=== PATIENT | female | born 1995 | race Caucasian/White ===

== ENCOUNTER 2017-09-14 19:06 | Emergency (ER) | payer OTHER ==
[2017-09-14 20:02] VITALS: BP 140/87
[2017-09-14] MEDS ORDERED: Polymyx/Trimethoprim OPTH* 10 ML BTL RIGHT EYE ONE (20:12)
--- NOTE | 2017-09-14 20:12 | UC ---
Eye Complaint HPI - HPI Summary HPI Summary: crusting itching and burning began in left eye this morning - History of Current Complaint Chief Complaint: UCEye Stated Complaint: EYE COMP. Time Seen by Provider: 09/14/17 20:07 Hx Obtained From: Patient Hx Last Menstrual Period: unknown ?: No Onset/Duration: Sudden Onset Timing: Constant Pain Intensity: 0 Location of Injury: Conjunctiva Aggravating Factor(s): Nothing Alleviating Factor(s): Nothing Associated Signs And Symptoms: Positive: Drainage (Purulent) - Allergies/Home Medications Allergies/Adverse Reactions: Allergies Allergy/AdvReac Type Severity Reaction Status Date / Time cefaclor [From [facility]] Allergy Hives Verified 09/14/17 19:56 Home Medications: Home Medications Albuterol 2.5MG/3ML (0.083%)* [Ventolin 2.5 MG/3 ML NEB.MERT*] 2.5 mg INH Q6H PRN 09/14/17 [History Confirmed 09/14/17] Budesonide/Formote 160/4.5(NF) [Symbicort 160/4.5 (NF)] 2 puff INH BID 09/14/17 [History Confirmed 09/14/17] PMH/Surg Hx/FS Hx/Imm Hx Previously Healthy: No Respiratory History: Asthma - Surgical History Surgical History: None - Family History Known Family History: Positive: None - Social History Occupation: Unemployed Lives: With Family Alcohol Use: None Substance Use Type: None Smoking Status (MU): Never Smoked Tobacco Review of Systems Constitutional: Negative Skin: Negative Eyes: Negative, Drainage - os, Eye Redness - os ENT: Negative Respiratory: Negative Cardiovascular: Negative Gastrointestinal: Negative Genitourinary: Negative Motor: Negative Neurovascular: Negative Musculoskeletal: Negative Neurological: Negative Psychological: Negative Is Patient Immunocompromised?: No All Other Systems Reviewed And Are Negative: Yes Physical Exam Triage Information Reviewed: Yes Appearance: Well-Appearing, No Pain Distress, Well-Nourished Vital Signs: Initial Vital Signs Temp 98 F 09/14/17 19:57 Pulse 90 09/14/17 19:57 Resp 18 09/14/17 19:57 BP 140/87 09/14/17 19:57 Pulse Ox 97 09/14/17 19:57 Vital Signs Reviewed: Yes Eye Exam: Normal Eyes: Positive: Conjunctiva Inflamed - os, Discharge - os ENT Exam: Normal ENT: Positive: Normal ENT inspection, Hearing grossly normal. Negative: Trismus , Muffled voice, Hoarse voice Dental Exam: Normal Neck exam: Normal Neck: Positive: Supple, Nontender Respiratory Exam: Normal Respiratory: Positive: Chest non-tender, No respiratory distress, No accessory muscle use Cardiovascular Exam: Normal Cardiovascular: Positive: RRR, Pulses Normal, Brisk Capillary Refill Musculoskeletal Exam: Normal Musculoskeletal: Positive: Strength Intact, ROM Intact, No Edema Neurological Exam: Normal Neurological: Positive: Alert, Muscle Tone Normal Psychological Exam: Normal Skin Exam: Normal Eye Complaint Course/Dx - Course Course Of Treatment: polytrim eye drops, follow blood pressure with pcp good hand washing - Differential Dx/Diagnosis Provider Diagnoses: OS Conjusctivitis, elevated blood pressure without dx of hypertension Discharge - Sign-Out/Discharge Documenting (check all that apply): Discharge/Admit/Transfer - Discharge Plan Condition: Stable Disposition: HOME Patient Education Materials: How to Use Eye Drops (ED), Conjunctivitis (ED) Forms: *Work Release Referrals: Palmira Pedro MD [Primary Care Provider] - If Needed - Billing Disposition and Condition Condition: STABLE Disposition: HOME
== END 2017-09-14 20:33 | disposition home or self-care (01) ==
LOC: UCCORT 19:06
DX: H10.32 Unspecified acute conjunctivitis, left eye (principal); R03.0 Elevated blood-pressure reading, without diagnosis of hypertension; J45.909 Unspecified asthma, uncomplicated; Z88.1 Allergy status to other antibiotic agents
CPT/HCPCS: 99202; G0463

== ENCOUNTER 2018-07-28 20:13 | Emergency (ER) | payer OTHER ==
[2018-07-28 20:32] VITALS: BP 132/75
--- NOTE | 2018-07-28 20:46 | UC ---
Skin Complaint HPI - HPI Summary HPI Summary: Patient has had a rash on the end of her nose for approximately 2 days. She has a history of cold sores. She was sent here for a note to return to work stating she was no longer contagious. - History of Current Complaint Chief Complaint: UCSkin Time Seen by Provider: 07/28/18 20:16 Stated Complaint: SKIN COMPLAINT Hx Obtained From: Patient Hx Last Menstrual Period: unknown ?: No Onset/Duration: Gradual Onset Onset Severity: Moderate Current Severity: Mild - The rash on the end of her nose is crusted today. Pain Intensity: 0 Location: Nose Character: Pruritus - Rash started off as being itchy Aggravating Factor(s): Nothing Alleviating Factor(s): Other - Patient states she "scrubbed the area" with alcohol yesterday and today. Associated Signs & Symptoms: Positive: Negative - Allergy/Home Medications Allergies/Adverse Reactions: Allergies Allergy/AdvReac Type Severity Reaction Status Date / Time cefaclor [From [facility]] Allergy Hives Verified 07/28/18 20:32 PMH/Surg Hx/FS Hx/Imm Hx Previously Healthy: Yes - straight sores. - Surgical History Surgical History: None - Family History Known Family History: Positive: None - Social History Alcohol Use: None Substance Use Type: None Smoking Status (MU): Never Smoked Tobacco Review of Systems All Other Systems Reviewed And Are Negative: Yes Constitutional: Positive: Negative Skin: Positive: Rash - Valeri nose which is now dry and not draining. Eyes: Positive: Negative ENT: Positive: Negative Respiratory: Positive: Negative Cardiovascular: Positive: Negative Gastrointestinal: Positive: Negative Genitourinary: Positive: Negative Motor: Positive: Negative Neurovascular: Positive: Negative Musculoskeletal: Positive: Negative Neurological: Positive: Negative Psychological: Positive: Negative Is Patient Immunocompromised?: No Physical Exam Triage Information Reviewed: Yes Appearance: Well-Appearing, No Pain Distress, Well-Nourished Vital Signs: Initial Vital Signs Temp 98.4 F 07/28/18 20:24 Pulse 87 07/28/18 20:24 Resp 16 07/28/18 20:24 BP 132/75 07/28/18 20:24 Pulse Ox 98 07/28/18 20:24 Vital Signs Reviewed: Yes Skin: Positive: Rashes, Other - Patient has a herpetic looking dried crusty rash at the end of her nose. No lesions inside the nose. No cellulitis of the nose. Course/Dx - Course Course Of Treatment: Patient comfortable here, she is given a note for work to say that she may return without restrictions. A good RX coupon was given to the patient to use at the pharmacy. We discussed the nature of cold sores and impetigo although I don't feel this is impetigo at this time. - Differential Diagnoses - Skin Complaint Differential Diagnoses: Other - herpes - Diagnoses Provider Diagnosis: Herpes simplex labialis Discharge - Sign-Out/Discharge Documenting (check all that apply): Patient Departure All imaging exams completed and their final reports reviewed: No Studies - Discharge Plan Condition: Good Disposition: HOME Prescriptions: Acyclovir [Acyclovir 5% TOPICAL] 5 % TOPICAL QID 5 Days #15 gm Patient Education Materials: Oral Herpes Simplex Virus Infections (ED) Forms: *Work Release Referrals: No Primary Care Phys,NOPCP [Primary Care Provider] - Additional Instructions: Please call [facility] at [phone] to get help establishing care with a primary care provider. Avoid skin to skin contact when you have an active cold sore - Billing Disposition and Condition Condition: GOOD Disposition: Home - Attestation Statements Provider Attestation: Per institutional requirements, I have reviewed the chart, however, I was not consulted specifically or made aware of this patient by the midlevel provider. I did not personally evaluate, interact with , or disposition this patient.
== END 2018-07-28 20:47 | disposition home or self-care (01) ==
LOC: UCCORT 20:13
DX: B00.1 Herpesviral vesicular dermatitis (principal); Z88.1 Allergy status to other antibiotic agents
CPT/HCPCS: 99212; G0463